=== PATIENT | female | born 1985 | race Caucasian/White ===

== ENCOUNTER 2020-11-06 19:29 | Emergency (ER) | payer SELFPAY ==
[~2020-11-06] VITALS: Ht 157.4 cm; Wt 88.3 kg
--- NOTE | 2020-11-06 19:40 | ED Chest Pain ---
General Stated Complaint: CHEST PAIN History of Present Illness Date Seen by Provider: Nov 06, 2020 Time Seen by Provider: 19:36 Initial Comments 35-year-old female presents with chest pain has been going on for 2 days. She reports that her chest feels very tight. She is mildly wheezy. She denies any nausea vomiting or diaphoresis. Reports the pain gets worse with deep breath. She denies any fevers or chills. She does currently use tobacco. Patient with no other systemic complaints Allergies and Home Medications Allergies Coded Allergies: No Known Drug Allergies (Unverified , 11/06/20) Home Medications Albuterol Sulfate 6.7 Gm Hfa.aer.ad, 2 PUFF INH Q6H Prescribed by: GISSELL MITCHELL on 11/06/202129 Azithromycin 250 Mg Tablet, 250 MG PO UD TAKE 2 TABLETS ON DAY ONE THEN TAKE 1 TABLET DAILY FOR FOUR MORE DAYS Prescribed by: GISSELL MITCHELL on 11/06/202129 Patient Home Medication List Home Medication List Reviewed: Yes Review of Systems Review of Systems Constitutional: No chills, No fever EENTM: No Symptoms Reported Respiratory: No Symptoms Reported; Denies Shortness of Air Cardiovascular: See HPI, Chest Pain Gastrointestinal: Denies Abdominal Pain, Denies Nausea, Denies Vomiting Musculoskeletal: no symptoms reported Skin: no symptoms reported Psychiatric/Neurological: No Symptoms Reported Endocrine: No Symptoms Reported Hematologic/Lymphatic: No Symptoms Reported Past Spahbdx-Ccswtl-Gahkhk Hx Past Med/Social Hx: Reviewed Nursing Past Med/Soc Hx Physical Exam Vital Signs Vital Signs - First Documented Capillary Refill : Height, Weight, BMI Height: '" Weight: lbs. oz. kg; BMI Method: General Appearance: No Apparent Distress Neck: Normal Inspection Respiratory: No Accessory Muscle Use, Decreased Breath Sounds, Wheezing (Mild diffuse) Cardiovascular: Regular Rate, Rhythm, No Edema Gastrointestinal: Non Tender, Soft Extremity: Normal Capillary Refill, Normal Inspection, Normal Range of Motion Neurologic/Psychiatric: Alert, Oriented x3, No Motor/Sensory Deficits, Normal Mood/Affect, lieutenant shift supervisor II-XII Norm as Tested Skin: Normal Color, Warm/Dry Progress/Results/Core Measures Results/Orders Lab Results Laboratory Tests Test 11/06/20 19:45 Range/Units White Blood Count 8.9 4.3-11.0 10^3/uL Red Blood Count 5.01 4.35-5.85 10^6/uL Hemoglobin 12.8 11.5-16.0 G/DL Hematocrit 40 35-52 % Mean Corpuscular Volume 80 80-99 FL Mean Corpuscular Hemoglobin 26 25-34 PG Mean Corpuscular Hemoglobin Concent 32 32-36 G/DL Red Cell Distribution Width 14.6 H 10.0-14.5 % Platelet Count 209 130-400 10^3/uL Mean Platelet Volume 10.4 7.4-10.4 FL Immature Granulocyte % (Auto) 0 % Neutrophils (%) (Auto) 55 42-75 % Lymphocytes (%) (Auto) 34 12-44 % Monocytes (%) (Auto) 9 0-12 % Eosinophils (%) (Auto) 2 0-10 % Basophils (%) (Auto) 1 0-10 % Neutrophils # (Auto) 4.9 1.8-7.8 X 10^3 Lymphocytes # (Auto) 3.0 1.0-4.0 X 10^3 Monocytes # (Auto) 0.8 0.0-1.0 X 10^3 Eosinophils # (Auto) 0.2 0.0-0.3 10^3/uL Basophils # (Auto) 0.0 0.0-0.1 10^3/uL Immature Granulocyte # (Auto) 0.0 0.0-0.1 10^3/uL Prothrombin Time 13.7 12.2-14.7 SEC INR Comment 1.0 0.8-1.4 Activated Partial Thromboplast Time 27 24-35 SEC Sodium Level 137 135-145 MMOL/L Potassium Level 3.7 3.6-5.0 MMOL/L Chloride Level 104 98-107 MMOL/L Carbon Dioxide Level 21 21-32 MMOL/L Anion Gap 12 5-14 MMOL/L Blood Urea Nitrogen 11 7-18 MG/DL Creatinine 0.57 L 0.60-1.30 MG/DL Estimat Glomerular Filtration Rate > 60 BUN/Creatinine Ratio 19 Glucose Level 103 70-105 MG/DL Calcium Level 8.9 8.5-10.1 MG/DL Corrected Calcium 8.7 8.5-10.1 MG/DL Magnesium Level 1.9 1.6-2.4 MG/DL Total Bilirubin 0.2 0.1-1.0 MG/DL Aspartate Amino Transf (AST/SGOT) 13 5-34 U/L Alanine Aminotransferase (ALT/SGPT) 14 0-55 U/L Alkaline Phosphatase 94 40-136 U/L Myoglobin 26.4 10.0-92.0 NG/ML Troponin I < 0.30 <0.30 NG/ML Pro-B-Type Natriuretic Peptide 12.2 <75.0 PG/ML Total Protein 7.2 6.4-8.2 GM/DL Albumin 4.2 3.2-4.5 GM/DL Lipase 15 8-78 U/L My Orders Orders - MITCHELL,GISSELL L DO Cbc With Automated Diff (11/06/20 19:40) Magnesium (11/06/20 19:40) Chest 1 View Ap/Pa Only (11/06/20:40) Ekg Tracing (11/06/20:40) Comprehensive Metabolic Panel (11/06/20 19:40) Myoglobin Serum (11/06/20 19:40) Protime With Inr (11/06/20:40) Partial Thromboplastin Time (11/06/20:40) Monitor-Rhythm Ecg Trace Only (11/06/20 19:40) Lipid Panel (11/07/20 06:00) Aspirin Chewable Tablet (Baby Aspirin Ch (11/06/20 19:45) Svn Small Volume Nebulizer (11/06/20 19:40) Ed Iv/Invasive Line Start (11/06/20 19:40) Lipase (11/06/20 19:40) Troponin I Fs (11/06/20 19:40) Probnp Fs (11/06/20 19:40) Albuterol/Ipra Inhalation Soln (Duoneb I (11/06/20 19:45) Dexamethasone Injection (Decadron Inje (11/06/20 19:45) Medications Given in ED Current Medications Medications Dose Ordered Sig/Jean Carlos Route Start Time Stop Time Status Last Admin Dose Admin Albuterol/ Ipratropium 3 ml ONCE ONCE INH 11/06/20 19:45 11/06/20 19:46 DC 11/06/20 20:06 3 ML Aspirin 324 mg ONCE ONCE PO 11/06/20 19:45 11/06/20 19:46 DC 11/06/20 20:00 324 MG Dexamethasone Sodium Phosphate 10 mg ONCE ONCE IV 3/19/21 19:45 11/06/20 19:46 DC 11/06/20 20:02 10 MG Vital Signs/I&O 11/06/20 11/06/20 19:35 19:35 Temp 36.5 Pulse 74 Resp 20 B/P (MAP) 131/88 (102) Pulse Ox 96 O2 Delivery Room Air Room Air Progress Progress Note : Time: 21:26 Progress Note Patient symptoms improved following a breathing treatment. Her troponin is negative. Her pain is much more consistent with a bronchitis versus a cardiac in nature. I will prescribe her azithromycin, and inhaler. She should follow- up with her primary care provider next week if symptoms are not improving. Initial ECG Impression Date: Nov 06, 2020 Initial ECG Impression Time: 19:40 Initial ECG Rate: 64 Initial ECG Rhythm: Normal Sinus Initial ECG Impression: Normal Comment no acute findings Diagnostic Imaging Diagonstic Imaging: Xray Plain Films/CT/US/NM/MRI: chest Comments [facility], [facility]. [place], [place] NAME: MARKLARY John [facility] REC#: [id number] PT STATUS: REG ER : 1985 PHYSICIAN: GISSELL MITCHELL DO ADMIT DATE: 11/06/20/ER FS Draft Date of Exam:11/06/20 CHEST 1 VIEW AP/PA ONLY INDICATION: Shortness of breath. EXAMINATION: Portable erect AP chest at 8:12 p.m. COMPARISON: There is no prior study available for comparison. FINDINGS: The heart size is within normal limits. The lungs are clear. The osseous structures, where visualized, are intact. IMPRESSION: Negative for active disease. Reviewed: Reviewed by Me, Reviewed/Discussed Departure Impression Primary Impression: Bronchitis Disposition: 01 HOME, SELF-CARE Condition: Stable Departure-Patient Inst. Referrals: PERLA WATKINS MD (PCP/Family) Primary Care Physician Patient Instructions: Acute Bronchitis, Adult (DC) Add. Discharge Instructions: Follow-up with your primary care provider next week for recheck of today's symptoms Scripts Albuterol Sulfate (Proventil Hfa) 6.7 Gm Hfa.aer.ad 2 PUFF INH Q6H for SHORTNESS OF BREATH, #1 EACH Prov: GISSELL MITCHELL DO 11/06/20 Azithromycin (Azithromycin) 250 Mg Tablet 250 MG PO UD, #6 TAB TAKE 2 TABLETS ON DAY ONE THEN TAKE 1 TABLET DAILY FOR FOUR MORE DAYS Prov: GISSELL MITCHELL DO 11/06/20 GISSELL MITCHELL DO Nov 06, 2020 19:40
[2020-11-06] MEDS ORDERED: ASPIRIN 81 MG CHEW (CHILDREN'S ASA) PO ONE (19:45)
[2020-11-06] MEDS ORDERED: RT-ALBUTEROL/IPRATROPIUM 3 ML (DUONEB) VIAL INH ONE (19:45)
[2020-11-06 19:59] LABS: BASOPHILS % (AUTO) 1 % (0-10); EOSINOPHILS # (AUTO) 0.2 10^3/uL (0.0-0.3); EOSINOPHILS % (AUTO) 2 % (0-10); HEMATOCRIT 40 % (35-52); HEMOGLOBIN 12.8 G/DL (11.5-16.0); LYMPHOCYTES % (AUTO) 34 % (12-44); MEAN CORPUSCULAR HEMOGLOBIN 26 PG (25-34); MEAN CORPUSCULAR HGB CONC 32 G/DL (32-36); MEAN CORPUSCULAR VOLUME 80 FL (80-99); MEAN PLATELET VOLUME 10.4 FL (7.4-10.4); MONOCYTES # (AUTO) 0.8 X 10^3 (0.0-1.0); MONOCYTES % (AUTO) 9 % (0-12); NEUTROPHILS # (AUTO) 4.9 X 10^3 (1.8-7.8); NEUTROPHILS % (AUTO) 55 % (42-75); PLATELET COUNT 209 10^3/uL (130-400); WHITE BLOOD COUNT 8.9 10^3/uL (4.3-11.0)
[2020-11-06 20:07] LABS: PROTHROMBIN TIME PATIENT 13.7 SEC (12.2-14.7)
[2020-11-06 20:17] LABS: BUN/CREATININE RATIO 19; CARBON DIOXIDE 21 MMOL/L (21-32); CHLORIDE 104 MMOL/L (98-107); CREATININE SERUM 0.57 MG/DL (0.60-1.30); GFR ESTIMATED > 60; GLUCOSE 103 MG/DL (70-105); POTASSIUM 3.7 MMOL/L (3.6-5.0); SODIUM 137 MMOL/L (135-145)
[2020-11-06 20:18] LABS: ALANINE AMINOTRANSFERASE 14 U/L (0-55); ALBUMIN 4.2 GM/DL (3.2-4.5); ALKALINE PHOSPHATASE 94 U/L (40-136); BILIRUBIN,TOTAL 0.2 MG/DL (0.1-1.0); CALCIUM 8.9 MG/DL (8.5-10.1); LIPASE 15 U/L (8-78); MAGNESIUM 1.9 MG/DL (1.6-2.4); TOTAL PROTEIN 7.2 GM/DL (6.4-8.2)
--- NOTE | 2020-11-06 21:02 | Diagnostic Imaging Report ---
INDICATION: Shortness of breath. EXAMINATION: Portable erect AP chest at 8:12 p.m. COMPARISON: There is no prior study available for comparison. FINDINGS: The heart size is within normal limits. The lungs are clear. The osseous structures, where visualized, are intact. IMPRESSION: Negative for active disease. Dictated by: Dictated on workstation # [id number]
[2020-11-06] MEDS ORDERED: RT-ALBUINH INH (21:30)
[2020-11-06] MEDS ORDERED: AZIT250T12 PO (21:30)
[2020-11-06 21:35] VITALS: BP 128/67
== END 2020-11-06 21:35 | disposition home or self-care (01) ==
LOC: ER FS 19:31
DX: J40 Bronchitis, not specified as acute or chronic (principal); I10 Essential (primary) hypertension; Z72.0 Tobacco use
CPT/HCPCS: 36415; 71045; 80053; 83690; 83735; 83874; 83880; 84484; 85025; 85610; 85730; 93041